=== PATIENT | female | born 2000 | race Caucasian/White ===

== ENCOUNTER 2024-03-04 09:04 | Outpatient (CLI) | payer OTHER, SELFPAY ==
[2024-03-04 14:40] LABS: Chlamydia DNA Amplified* NOT DETECTED (No Detected); GC DNA Amplified* NOT DETECTED (No Detected)
== END 2024-03-04 09:05 | disposition home or self-care (01) ==
LOC: FRMREF 09:05
PROVIDERS: PCP Family Medicine; Visit Provider Registered Nurse
DX: Z11.3 Encounter for screening for infections with a predominantly sexual mode of transmission (principal)
CPT/HCPCS: 87491; 87591

== ENCOUNTER 2025-03-08 16:59 | Outpatient (CLI) | payer OTHER, SELFPAY | END 2025-03-08 17:00 | disposition home or self-care (01) | PROVIDERS: PCP Family Medicine; Visit Provider Registered Nurse | DX: L65.9 Nonscarring hair loss, unspecified (principal); Z51.81 Encounter for therapeutic drug level monitoring | CPT/HCPCS: 80051; 82565; 82728; 83540; 83550; 84443 ==

== ENCOUNTER 2025-04-26 11:13 | Outpatient (CLI) | payer OTHER, SELFPAY | END 2025-04-26 11:14 | disposition home or self-care (01) | LOC: NFLDREF 05-12 02:47 | PROVIDERS: PCP Family Medicine; Referring Provider Family Medicine; Visit Provider Registered Nurse | DX: R79.89 Other specified abnormal findings of blood chemistry (principal); Z51.81 Encounter for therapeutic drug level monitoring | CPT/HCPCS: 82728; 84132; 84450; 84460 ==

== ENCOUNTER 2025-05-10 07:55 | Outpatient (CLI) | payer OTHER, SELFPAY ==
--- NOTE | 2025-05-10 08:30 | CRLHL7_ITS ---
For Patients: As a result of the Cures Act, medical imaging exams and procedure reports are released immediately into your electronic medical record. You may view this report before your referring provider. If you have questions, please contact your health care provider. Indication: Left axillary lump Technique: Grayscale ultrasound of the left axilla performed. Comparison: None Findings: No fluid collection or mass. No adenopathy. Impression: Negative ultrasound of the left axilla. Dictated by Ayo Fung MD @ 05/10/2025 9:58:42 AM (Electronically Signed)
== END 2025-05-10 07:56 | disposition home or self-care (01) ==
LOC: US 07:55
PROVIDERS: PCP Family Medicine; Visit Provider Registered Nurse
DX: R22.30 Localized swelling, mass and lump, unspecified upper limb (principal)
CPT/HCPCS: 76882